=== PATIENT | male | born 1960 | race Caucasian/White ===

== ENCOUNTER 2022-03-28 05:35 | Emergency (ER) | payer OTHER, MEDICARE ==
[~2022-03-28 05:35] MED LIST: ASPIRIN CHEWABL81 MG PO; BRILINTA90 MG PO; CRESTOR10 MG PO; FISH OIL 1,0001 EAC1 PO; IMDUR ER TAB 3030 MG PO; LOPRESSOR 25 MG25 MG PO; LOPRESSOR50 MG PO; MULTI COMPLETE1 EACH PO; NITROSTAT0.4 MG SL; NORCO 5-325 TA1 EACH PO; PANTOPRAZOLE SO40 MG PO; PRAVACHOL20 MG PO; RANEXA500 MG PO; VITAMIN D 11000 UNIT PO; VITAMIN D35000 UNI1 PO; ZANTAC150 MG PO
[2022-03-28 07:31] LABS: HEMOGLOBIN 15.8 gm/dl (14.0-17.5); RED BLOOD COUNT 5.22 M/UL (4.20-5.50); WHITE BLOOD COUNT 10.5 K/UL (4.5-11.0)
[2022-03-28 08:18] LABS: BUN/CREATININE RATIO 19 (0-10)
[2022-03-28] MEDS ORDERED: AMOX TR-K CLV1 EAC4 PO (10:54)
[2022-03-28] MEDS ORDERED: ZOFRAN ODT 4 MG4 MG SL (10:54)
== END 2022-03-28 12:39 | disposition home or self-care (01) ==
LOC: ER1 05:35
PROVIDERS: Emergency Medicine
DX: K35.80 Unspecified acute appendicitis (principal); I25.2 Old myocardial infarction; I10 Essential (primary) hypertension; Z95.1 Presence of aortocoronary bypass graft; Z95.5 Presence of coronary angioplasty implant and graft; Z79.02 Long term (current) use of antithrombotics/antiplatelets; Z79.82 Long term (current) use of aspirin
CPT/HCPCS: 80053; 81001; 82550; 82553; 83690; 84484; 85025; 93005; 96361; 96365; 96375; 99284; J2270; J2405; Q9967